=== PATIENT | male | born 1935 | race Caucasian/White ===

== ENCOUNTER 2024-03-31 16:25 | Emergency (ER) | payer MEDICARE, SELFPAY ==
[2024-03-31 16:49] VITALS: BP 131/49; PULSE 77; RESP 16; TEMP 36.9; O2SAT 100
--- NOTE | 2024-03-31 17:12 | ED.MALEGU ---
HPI - Male Genitourinary General Chief complaint: Urogenital-Male Stated complaint: Urinary Problem Time Seen by Provider: 03/31/24 17:20 Source: patient, RN notes reviewed and old records reviewed Mode of arrival: ambulatory Limitations: no limitations History of Present Illness HPI Narrative: 88-year-old male presents to [facility] with complaints of urinary symptoms for about 2 week which includes frequency of urination. Patient is visiting area, he is from [place] here visiting with his family. Patient reports that he has had previous urinary tract infection about 2 years ago. Patient denies any fevers, denies any CVA tenderness or any rectal pressure or pain or any penis discharge. Patient does take daily Flomax Complaint: other ( urinary frequency and urgency) Onset (ago): week(s) (2) Severity: moderate Associated symptoms: Reports other (urinary frequency) Related Data Home Medications Medication Instructions Recorded Confirmed fluticasone fur. 100 mcg-umeclid 2 ea inhalation BID PRN Wheezing 03/31/24 03/31/24 62.5 mcg-vilant 25 mcg inhalat.powder (Trelegy Ellipta) ketoconazole 2 % shampoo 1 applic topical DIRECTED 03/31/24 03/31/24 losartan 25 mg tablet 25 mg PO DAILY 03/31/24 03/31/24 oxybutynin chloride 5 mg tablet 5 mg PO TID 03/31/24 03/31/24 pramipexole 0.25 mg tablet 0.25 mg PO DAILY 03/31/24 03/31/24 rosuvastatin 10 mg tablet 10 mg PO DAILY 03/31/24 03/31/24 tamsulosin 0.4 mg capsule 0.4 mg PO DAILY 03/31/24 03/31/24 triamcinolone acetonide 0.025 % 1 applic topical DIRECTED 03/31/24 03/31/24 topical cream Allergies Allergy/AdvReac Type Severity Reaction Status Date / Time No Known Allergies Allergy Verified 03/31/24 16:49 Review of Systems Review of Systems: CONSTITUTIONAL: Denies fever, chills, or sweats. CARDIOVASCULAR: Denies chest pain, palpitations, or edema. RESPIRATORY: Denies cough or dyspnea. GASTROINTESTINAL: Denies abdominal pain, nausea, vomiting, or diarrhea. GENITOURINARY: Reports no dysuria,states frequency and urgency. Denies flank pain or hematuria. SKIN: Denies rash or itching. MUSCULOSKELETAL: Denies back pain or myalgia. Denies CVA tenderness NEUROLOGIC: Denies headache All systems reviewed & are unremarkable except as noted in HPI and below PMFSH Past Medical History Medical History (Updated 04/01/24 @ 11:47 by Nichelle Fountain NP) BPH (benign prostatic hyperplasia) Elevated cholesterol Hypertension Overactive bladder Restless leg syndrome Surgical History Surgical History (Updated 04/01/24 @ 11:40 by Nichelle Fountain NP) History of colon surgery 5 years ago Social History Social History (Updated 04/01/24 @ 11:34 by Nichelle Fountain NP) Smoking status: Unknown if ever smoked Alcohol intake: current Alcohol use details: rare social Substance use type: does not use Gender identity (if verbalized by the patient): Male Comments At time of signature, agree with nursing past medical, surgical, social and family history. There is no relevant family history pertinent to the presenting complaint Exam Narrative: GENERAL: Well-appearing, well-nourished, and in no acute distress. HEAD: Normocephalic, atraumatic. NECK: Supple. no lymphadenopathy CHEST: Clear to auscultation. No respiratory distress.SAO2 100% on room air HEART: Regular rate and rhythm. No murmur heard. Normal peripheral pulses. ABDOMEN: Soft, nontender, nondistended, normal active bowel sounds. No CVA tenderness, denies any burning with urination, no CVA tenderness, rectal pain or pressure or any penis discharge. EXTREMITIES: Normal range of motion. No edema. SKIN: Warm, dry, no rash. NEURO: No focal deficits. Alert and oriented x3. Course Course Emergency Course: Patient is aware of diagnosis, understands and agrees to treatment plan.? Anticipatory guidance given.? Patient agrees to follow-up as directed and is aware of reasons to seek care at the emergency
[2024-03-31 17:26] LABS: EDUAAPPEAR Cloudy; EDUABILI Negative; EDUABLOOD 1+; EDUACOLOR1 Dark; EDUAGLUCOSE Negative; EDUAKETONE Negative; EDUALEUKO 3+; EDUANITRATE Negative; EDUAPH 5.5; EDUAPROTEIN 1+; EDUASPGRAVITY 1.025; EDUAUROBILI 0.2
== END 2024-03-31 17:41 | disposition home or self-care (01) ==
PROVIDERS: Emergency Provider Registered Nurse
DX: N39.0 Urinary tract infection, site not specified (principal); E78.00 Pure hypercholesterolemia, unspecified; I10 Essential (primary) hypertension; G25.81 Restless legs syndrome; N32.81 Overactive bladder
CPT/HCPCS: 81003; 87077; 87086; 87088; 87186; 99203; G0463